=== PATIENT | male | born 1980 | race American Indian/Alaskan Native ===

== ENCOUNTER 2017-03-16 20:48 | Emergency (ER) | payer OTHER ==
[2017-03-16 21:09] VITALS: RESP 18; TEMP 97.9; O2SAT 99
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
[2017-03-16 23:25] VITALS: BP 142/75; PULSE 87
--- NOTE | 2017-03-17 16:08 | RAD ---
PROCEDURE: Left Wrist Radiographs. HISTORY: pain COMPARISON: None. FINDINGS: BONES: Normal. No fracture. JOINTS: Normal. No dislocation. SOFT TISSUES: Normal. OTHER FINDINGS: None. IMPRESSION: Normal left wrist radiographs.
== END 2017-03-16 22:30 | disposition home or self-care (01) ==
LOC: ED 20:48
DX: M25.532 Pain in left wrist (principal)